=== PATIENT | male | born 1975 | race Caucasian/White ===

== ENCOUNTER 2017-09-22 02:01 | Emergency (ER) | END 2017-09-22 08:26 | disposition home or self-care (01) ==

== ENCOUNTER 2018-01-02 20:53 | Emergency (ER) | END 2018-01-03 01:41 | disposition home or self-care (01) ==

== ENCOUNTER 2018-06-29 00:23 | Emergency (ER) | END 2018-06-29 06:43 | disposition left against medical advice (07) ==

== ENCOUNTER 2019-02-19 23:48 | Emergency (ER) | payer OTHER ==
[~2019-02-19] VITALS: Ht 172.7 cm; Wt 92.9 kg
[~2019-02-19 23:48] MED LIST: IBUP800T48 PO; PHEN177S43 MT
[2019-02-19 23:55] VITALS: Ht 172.7 cm; Wt 92.9 kg
--- NOTE | 2019-02-20 02:03 | ERD ---
ER Documentation Chief Complaint Chief Complaint cement particles splashed in eyes x1 weeks HPI This is a 43-year-old male presents to emerge department with complaints of left eye pain. Stated that cement particles splashed in his eyes about a week ago. Denies headache, head injury, loss of consciousness, dizziness, neck pain, neck stiffness, throat pain, difficulty swallowing, difficulty breathing lying flat, shoulder pain, chest pain, back pain, abdominal pain, nausea, vomiting, constipation, diarrhea, urinary symptoms, loss of bowel and bladder control, trauma, injury, falls, difficulty walking due to pain, numbness or tingling sensation, calf pain, recent travel, recent major surgery in the last 3 weeks, calf pain, recent long travel, recent exposure to any illness, recent antibiotic use in the last 3 months, fever, chills, seizures. Past medical history: Surgical history: Social: Denies smoking, use of alcoholic beverages, use of illegal drugs. ROS All systems reviewed and are negative except as per history of present illness. Medications Home Meds Active Scripts Ibuprofen* (Motrin*) 800 Mg Tab, 800 MG PO Q6H PRN for PAIN AND OR ELEVATED TEMP, #30 TAB Prov:PASILABAN,SURYAAR F 02/20/19 Polymyxin B Sulfate-TMP* (Polymyxin B-TMP Eye Drops*) 10 Ml Drops, 1 DROP BOTH EYES QID for 7 Days, EA Prov:PASILABAN,KLAR F 02/20/19 Ibuprofen* (Motrin*) 800 Mg Tab, 800 MG PO Q6H PRN for PAIN AND OR ELEVATED TEMP, #30 TAB Prov:PASILABAN,KLAR F 06/29/18 Phenol* (Chloraseptic* [place]) 177 Ml [place].pump, 2 SPRAY MT Q2H PRN for SORE THROAT, #1 BOTTLE Prov:MARLENA JIMENEZ PA-C 09/22/17 Reported Medications [None] No Conflict Check 03/10/11 Allergies Allergies: Coded Allergies: No Known Allergies (Verified Allergy, Mild, 03/13/11) PMhx/Soc Medical and Surgical Hx: pt denies Medical Hx, pt denies Surgical Hx History of Surgery: No Anesthesia Reaction: No Hx Neurological Disorder: No Hx Respiratory Disorders: No Hx Cardiac Disorders: No Hx Psychiatric Problems: No Hx Miscellaneous Medical Probl: No Hx Alcohol Use: Yes (occasionally) Hx Substance Use: No Hx Tobacco Use: No Smoking Status: Never smoker Physical Exam Vitals Physical Exam Const: No acute distress Head: Atraumatic Eyes: Normal Conjunctiva. Bilateral eyes: No conjunctival injection. There is no pain in eye movement. Extraocular movement of his eyes are within normal limits. No discharge. No bleeding. No visual field loss. ENT: Normal External Ears, Nose and Mouth. Bilateral ears: TMs are not erythematous. No bleeding. No discharge. No hearing loss. No foreign bodies. Throat: Uvula is in midline and nondisplaced. Tonsils are +1 bilaterally without redness and without exudates. Tolerating secretions. Patent airway. Speaks full and clear sentences. Neck: Full range of motion. No meningismus. No nuchal rigidity. No signs of meningeal irritation. Resp: Clear to auscultation bilaterally Cardio: Regular rate and rhythm, no murmurs Abd: Soft, non tender, non distended. Normal bowel sounds Skin: No petechiae or rashes Back: No midline or flank tenderness Ext: No cyanosis, or edema Neur: Awake and alert. No neurological deficits. Psych: Normal Mood and Affect Results 24 hrs Current Medications Medications Dose Sig/Robinson Start Time Status Last (Trade) Ordered Route PRN Stop Time Admin Dose Reason Admin Tetracaine 1 drop ONCE ONCE 02/20/19 DC HCl BOTH EYES 02:30 (Tetracaine 02/20/19 02:31 0.5% Steri-Unit Lisset) Fluorescein 1 strip ONCE ONCE 02/20/19 DC Sodium BOTH EYES 02:30 (Hekou-L-Scyf 02/20/19 02:31 p) Diphtheria/ 0.5 ml ONCE ONCE 02/20/19 DC Tetanus/Acell IM* 02:30 Pertussis 02/20/19 02:31 (Adacel) Sodium 1,000 ml ONCE IRR 02/20/19 DC Chloride 02:30 (NS (Irrig)) 02/20/19 05:30 Procedures/MDM Diagnostic tests: Visual acuity: Left eye: Reviewed. Right eye: Reviewed. Bilateral eyes: Reviewed. Eye exam under Rogers lamp: No signs of punctured globe. No obvious uptake. No dendritic lesions. No pain in eye movement. Treatment: Adacel. Patient refused. Stated that he has this before. Eye irritation/Thiago lens. Re-evaluation: No visual field loss. Differential diagnosis I have low suspicion for acute closure angle glaucoma, punctured globe, globe rupture, retained foreign body. Final diagnosis: Eye injury. Corneal abrasion. Prescription: Polytrim. Motrin. Follow-up with PCP in the next 24-48 hours. Follow-up with door clamp operator in the next 24 to 48 hours. Come back here in the emergency department for any new symptoms or any worsening symptoms. All questions and concerns were answered. Patient and family members verbalized understanding and agreed with plan of care. Hemodynamically stable on discharge. Departure Diagnosis: Primary Impression: Eye injury Condition: Stable Additional Instructions: Follow-up with PCP in the next 24-48 hours. Follow-up with door clamp operator in the next 24 to 48 hours. Come back here in the emergency department for any new symptoms or any worsening symptoms. ED DE LA PAZ February 20, 2019 02:03
[2019-02-20] MEDS: DIPHTH/TET/ACEL PERTUSS (ADULT) 0.5 ML VIAL IM* ONE ×2 (02:30→02:33)
[2019-02-20] MEDS ORDERED: TETRACAINE 0.5% 4 ML OPH BOTH EYES ONE (02:30)
[2019-02-20] MEDS ORDERED: SODIUM CHLORIDE 0.9% 1L IRRIG IRR SCH (02:30)
[2019-02-20] MEDS ORDERED: FLUORESCEIN STRIP BOTH EYES ONE (02:30)
[2019-02-20] MEDS ORDERED: IBUP800T48 PO (03:37)
[2019-02-20] MEDS ORDERED: POLY10DR19 BOTH EYES (03:37)
[2019-02-20 05:19] VITALS: BP 132/86; PULSE 64; RESP 16
== END 2019-02-20 05:19 | disposition home or self-care (01) ==
LOC: FTE 23:48
DX: S05.02XA Injury of conjunctiva and corneal abrasion without foreign body, left eye, initial encounter (principal); X58.XXXA Exposure to other specified factors, initial encounter; Y92.9 Unspecified place or not applicable
CPT/HCPCS: 90715; A4217; Z7502; Z7610; 99283